=== PATIENT | female | born 1960 | race Caucasian/White ===

== ENCOUNTER 2017-12-25 12:50 | Day surgery (SDC) | payer OTHER ==
[2017-12-25] MEDS ORDERED: FENTAnyl 50 MCG/ML VIAL ×2 (17:05→17:06)
[2017-12-25] MEDS ORDERED: MIDAZOLAM 1 MG/ML 2 ML INJ (17:07)
== END 2017-12-25 18:58 | disposition home or self-care (01) ==
LOC: GIL 12:50
DX: Z12.11 Encounter for screening for malignant neoplasm of colon (principal); D12.2 Benign neoplasm of ascending colon
CPT/HCPCS: 45380; 88305